=== PATIENT | female | born 1950 | race Caucasian/White ===

== ENCOUNTER → 2018-10-13 | Outpatient (CLI) | payer OTHER | LOC: M.ULTRA 08:00 | DX: R16.0 Hepatomegaly, not elsewhere classified (principal) ==

== ENCOUNTER → 2019-03-02 | Outpatient (CLI) | payer OTHER | LOC: M.ULTRA 10:23 | DX: N18.3 Chronic kidney disease, stage 3 (moderate) (principal) ==

== ENCOUNTER 2019-12-15 22:07 | Emergency (ER) | payer MEDICARE ==
[~2019-12-15] VITALS: Ht 157.5 cm; Wt 86.2 kg
[2019-12-15] MEDS ORDERED: BACLOFEN5 MG PO (22:21)
[2019-12-15] MEDS ORDERED: LISINOPRIL2.5 MG PO (22:22)
[2019-12-15] MEDS ORDERED: LORATIDINE 10 M10 M1 PO (22:22)
[2019-12-15] MEDS ORDERED: NAPROSYN500 M1 PO (22:22)
[2019-12-15] MEDS ORDERED: LEVO-T100 MCG PO (22:23)
[2019-12-15] MEDS ORDERED: METFORMIN HCL500 M3 PO (22:23)
[2019-12-15] MEDS ORDERED: NEXIUM40 MG PO (22:23)
[2019-12-15] MEDS ORDERED: SIMVASTATIN80 MG PO (22:24)
[2019-12-15] MEDS ORDERED: CIPROFLOXACIN1 EACH OTIC (22:24)
[2019-12-15] MEDS ORDERED: METHYLPREDNISOL32 MG PO (22:25)
[2019-12-15 23:11] LABS: ABSOLUTE BASOPHILS 0.1 thou/uL (0.0-0.2); ABSOLUTE EOSINOPHILS 0.2 thou/uL (0.0-0.7); ABSOLUTE LYMPHOCYTES 2.5 thou/uL (0.8-5.3); ABSOLUTE MONOCYTES 0.7 thou/uL (0.0-1.2); ABSOLUTE NEUTROPHILS 5.2 thou/uL (1.6-8.1); BASOPHILS 0.9 %; EOSINOPHILS 2.3 %; HEMATOCRIT 37.6 % (37.0-47.0); HEMOGLOBIN 12.5 gm/dL (12.0-15.0); LYMPHOCYTES 29.1 %; MCH 27.2 pg (26.0-34.0); MCHC 33.3 g/dL (28.0-37.0); MCV 81.7 fL (80.0-100.0); MONOCYTES 7.6 %; MPV 8.3 fl. (7.2-11.1); NUCLEATED RBCS 0 /100WBC; PLATELET COUNT* 327 thou/uL (150-400); POLYS 60.1 %; RDW-CV 14.9 % (10.5-14.5); WBC 8.6 thou/uL (4.0-11.0)
[2019-12-15 23:21] LABS: CALCIUM 8.3 mg/dL (8.5-10.1); CREATININE 1.3 mg/dL (0.6-1.3); POTASSIUM 4.4 mmol/L (3.5-5.1)
[2019-12-15 23:31] LABS: ALBUMIN 4.4 g/dL (3.4-5.0); TOTAL BILIRUBIN 1.2 mg/dL (<0.1-1.0); TOTAL PROTEIN 8.1 g/dL (6.4-8.2)
[2019-12-16] MEDS ORDERED: HYDROCODON-ACE1 EAC7 PO (00:34)
[2019-12-16 03:08] VITALS: BP 179/68
--- NOTE | 2019-12-16 11:18 | EKG ---
[place] [address] ELECTROCARDIOGRAM REPORT Name: JENNIFER ALMANZAR Room: [facility]#: [id number] Admission: 12/15/19 Attend Phys: Discharge: 12/16/19 Date of : 48 Date of Service: 12/15/192216 Report #: [id number] THIS REPORT FOR: //name// [facility] ED Test Date: 2019-12-15 Test Time: 22:17:09 Pat Name: JENNIFER ALMANZAR Department: Room: Gender: Dress Fitter: [place] : 1950 Requested By: Alexys Sterling Order Number: [id number] MD: Remi Alejandro Measurements Intervals [place] Rate: 73 P: -34 AK: 142 QRS: -36 QRSD: 87 T: 34 QT: 465 QTc: 513 Interpretive Statements Sinus rhythm Left axis deviation Consider anterior infarct Prolonged QT interval Baseline wander in lead(s) I No previous ECG available for comparison Electronically Signed On 12-16-2019 11:17:52 CELL TESTER by Remi Alejandro [email or web address] <ELECTRONICALLY SIGNED> By: Remi Alejandro MD, [facility] 12/16/19 1117 [id number] 16 Remi Alejandro MD, [facility] /EPI
== END 2019-12-16 03:10 | disposition home or self-care (01) ==
LOC: M.ERS 22:07
PROVIDERS: Emergency Medicine
DX: M54.6 Pain in thoracic spine (principal); I10 Essential (primary) hypertension; E78.5 Hyperlipidemia, unspecified; E03.9 Hypothyroidism, unspecified; E11.9 Type 2 diabetes mellitus without complications; Z88.5 Allergy status to narcotic agent